=== PATIENT | female | born 1955 | race Caucasian/White ===

== ENCOUNTER → 2016-05-16 | Outpatient (CLI) | payer BC ==
[~2016-05-16] MED LIST: ADVIN25050 INH; BUDE1SUS; BUDE1SUS6; CALC-393 PO; CICL160A INH; LEVO50TA6 PO; LEVO75TA5 PO; METO50TA7 PO; MULT-506 PO; MULT1CAP7 PO; OMEG10007 PO; SYN50 PO; singular PO
--- NOTE | 2016-05-16 11:02 | DIAGNOSTIC IMAGING REPORT ---
CT OF THE CHEST WITHOUT IV CONTRAST CLINICAL HISTORY: Solitary pulmonary nodule COMPARISON STUDY: Chest CT dated 03/01/2010, CT DOSE: 205.73 mGy.cm TECHNIQUE: CT of the thorax was performed from the thoracic inlet to the lung bases. Images are reviewed in the axial, sagittal, and coronal planes. IV contrast was not administered for this examination. FINDINGS: Thyroid: Imaged portions of the thyroid gland are normal in appearance. Thoracic aorta: The thoracic aorta is normal in course and caliber, noting standard 3 vessel arch anatomy. Heart: The heart is normal in size and configuration, without pericardial effusion. Lungs and pleural spaces: Within the right lung, there is relatively stable pleural and fissural nodularity including a 13 mm calcified nodule abutting the anterior mediastinum immediately steered to the internal mammary vessels. There are bilateral lower lobe branching tubular opacities highly suggestive of mucoid impaction. This pattern is often seen in allergic bronchopulmonary aspergillosis. In addition, the patient has multiple bilateral pure groundglass pulmonary nodules (approximately 10 in number). The largest measures approximately 1 cm. In retrospect, many of these were present on the prior study, however they appear slightly larger. The findings are suspicious for multifocal low-grade bronchogenic carcinoma. Mediastinum: There is no pathologic mediastinal lymphadenopathy by size criteria Shaina: There is no pathologic hilar adenopathy given the limitations of a noncontrast study Axilla: Clear. Upper abdomen: Partially visualized upper abdominal viscera is within normal limits. Skeletal structures: There are no lytic or blastic osseous lesions. IMPRESSION: 1. Multiple bilateral pure groundglass pulmonary nodules, viewed as suspicious for multifocal low-grade bronchogenic carcinoma 2. Bilateral lower lobe branching tubular opacities, suggestive of mucoid impaction. This pattern is often seen in allergic bronchopulmonary aspergillosis. 3. Relatively stable pleural and fissural nodularity within the right hemithorax 4. No evidence of pathologic adenopathy on this noncontrast study Electronically signed by: Jass Araujo M.D. 05/16/2016 11:01 AM Dictated Date/Time: 05/16/2016 10:45 AM
== END | disposition home or self-care (01) ==
LOC: C.CTS 10:23
PROVIDERS: ATTEND Internal Medicine Pulmonary Disease
DX: R91.1 Solitary pulmonary nodule (principal)

== ENCOUNTER 2016-05-31 07:32 | Day surgery (SDC) | payer BC ==
--- NOTE | 2016-05-30 13:49 | HISTORY & PHYSICAL EXAMINATION ---
DATE OF ADMISSION: 05/31/2016 HISTORY OF PRESENT ILLNESS: A 60-year-old female followed in the outpatient office for an abnormal CAT scan. Relevant past medical history does include history of tension pneumothorax/spontaneous in 2001 (status post chest tube and pleurodesis - right), hypothyroid, laryngeal reflux disease, and history of light tobacco use: 0.25-1 pack per day for 30 years (quit in 2001 following pneumothorax). In January 2002 the patient was hospitalized for right-sided spontaneous pneumothorax. She was initially treated with a chest tube and underwent bronchoscopy at that time. Pneumothorax recurred and ultimately she required a talc pleurodesis January 2002. She was followed by Dr. Quezada for symptoms of chest congestion and cough beginning in the mid . At this time, she was diagnosed with mild asthma. CT of the chest completed 2009 noted enlarged mediastinal lymph nodes and pulmonary nodules (as below). Care was subsequently transferred to Dr. Davis for continuation of treatment for asthma, nasal polyposis, and history of pneumothorax. She was tapered from Advair to Alvesco with excellent control of her respiratory symptoms. On exam/interview in the office on 05/21/[address] of the chest completed 05/16/2016. The images and the report for this study were reviewed. Previous nodular changes were stable; however, the radiologist noted bilateral pure ground-glass changes as well as bilateral mucoid material affecting the lower lobes primarily. The interpretation noted suspected Aspergillus versus low grade bronchogenic carcinoma per radiologist's report. Results of the CT were reviewed with the patient in the office. Clinically, she was doing very well without any symptoms of increased cough, dyspnea, or wheeze. She denied any symptoms of hemoptysis or changes in weight. She did have a recent renal biopsy which she stated was positive for "several types of cancer." CT February 2010: Multiple scattered hyperdense pleural nodules in the right hemithorax -- unchanged. CT July 2009: Interval improvement in tracheal nodularity. PAST MEDICAL HISTORY: 1. Pneumothorax - spontaneous 2001. 2. Hypothyroid. 3. Esophageal reflux disease. 4. Deviated nasal septum. 5. Arthritis. 6. Chronic rhinitis. 7. Nasal polyposis. 8. Hyperlipidemia. 9. Asthma. 10. Meningioma. 11. Renal cancer. 12. Pulmonary nodule. PAST SURGICAL HISTORY: 1. Colonoscopy. 2. Nasal endoscopy and polypectomy. 3. Resection of pilonidal cyst. 4. Thoracoscopy with talc pleurodesis. 5. History of tubal ligation. FAMILY HISTORY: 1. Coronary artery disease. 2. Hyperlipidemia. 3. Hypertension. 4. Sleep apnea. 5. Alzheimer's. 6. Coronary artery disease. 7. Diabetes mellitus. 8. Parkinson. 9. Hodgkin's disease. SOCIAL HISTORY: 1. The patient is a social drinker. 2. The patient is a former smoker. 3. The patient is . MEDICATIONS: 1. Montelukast sodium 10 mg oral tablet: Take 1 tablet at bedtime. 2. Levothyroxine sodium 50 mcg oral tablet: Take 1 tablet every other day alternating with 75 mcg oral tablet. 3. Levothyroxine sodium 75 mcg oral tablet: Take 1 tablet every other day alternating with 50 mcg oral tablet. 4. Alvesco 160 mcg/ACT inhalation aerosol solution: Inhale 1 puff twice daily. 5. Metoprolol succinate ER 50 mg oral tablet extended release: Take 1 tablet daily. 6. Budesonide 0.5 mg 2 mL inhalation suspension: Take twice daily as needed. 7. Citrucel plus D tablet: Take 2 tablets twice daily. 8. Multivitamin: Take 1 tablet daily. 9. [place] 3-6-9 Complex capsule: Take 1 capsule daily. ALLERGIES: 1. BENADRYL. 2. CODEINE. 3. SULFA. PHYSICAL EXAMINATION: VITAL SIGNS: Height 4 feet 11 inches. Weight 115 pounds, temperature 98.5 degrees Fahrenheit, heart rate 73 beats per minute, respiratory rate 18 respirations per minute, oxygen saturation 98% on room air, blood pressure 106/68 right upper extremity sitting. CONSTITUTIONAL: Well-developed, well-nourished female. No acute distress. HEAD: Positive facial symmetry. EYES: EOMI, PERRLA, no conjunctival injection. MOUTH: No erythema, exudate, or postnasal drip. Mucous membranes are moist. NECK: Trachea is midline without adenopathy or masses. RESPIRATORY: Nonlabored respirations. No wheeze, no rales, or rhonchi. Diminished breath sounds at bases. No clubbing or cyanosis. CARDIOVASCULAR: Regular rate and rhythm, no murmurs, rubs or gallops. EXTREMITIES: +2 radial pulses. Less than 1 second capillary refill. MUSCULOSKELETAL AND EXTREMITIES: Moving and developed symmetrically. No peripheral edema. NEUROLOGIC: Alert and oriented x3. Data recall intact. Appropriate affect. ASSESSMENT AND PLAN: A 60-year-old female presents to the office to follow up history of asthma and CT for pulmonary nodules. 1. Asthma is well controlled. Continue Alvesco and montelukast as previously prescribed. 2. CT with mucous plugging and bilateral solid ground-glass changes - nodules are stable: Proceed with basic fiberoptic bronchoscopy for cultures and visualization. 3. Preprocedural blood work with Aspergillus antibody. Patient's case reviewed and discussed agree with plan. MTDD
[2016-05-31] VITALS (13 sets, daily range): BP systolic 90–142; BP diastolic 48–94; PULSE 60–84; TEMP 36.8–37; O2SAT 96–100; Ht 149.9 cm; Wt 52.5 kg
[~2016-05-31] VITALS: Ht 149.9 cm; Wt 52.5 kg
[~2016-05-31 07:32] MED LIST changes: -BUDE1SUS; -BUDE1SUS6; -CALC-393 PO; -CICL160A INH; -LEVO50TA6 PO; -LEVO75TA5 PO; -MULT-506 PO; -MULT1CAP7 PO; -OMEG10007 PO; -singular PO
[2016-05-31] MEDS ORDERED: MIDAZOLAM HCL 5 MG/ML 1 ML VIAL IV ONE ×2 (07:33→10:45)
[2016-05-31] MEDS ORDERED: FENTANYL CITRATE 100 MCG 2 ML CARP IV ONE (07:33)
[2016-05-31] MEDS ORDERED: LIDOCAINE HCL 2% LOCAL 50ML VIAL INFIL ONE (07:33)
[2016-05-31] MEDS ORDERED: LEVO75TA5 PO (08:19)
[2016-05-31] MEDS ORDERED: LEVO50TA6 PO (08:19)
[2016-05-31] MEDS ORDERED: CICL160A INH (08:19)
[2016-05-31] MEDS ORDERED: BUDE1SUS6 (08:22)
[2016-05-31] MEDS ORDERED: singular PO (08:22)
[2016-05-31] MEDS ORDERED: BUDE1SUS (08:22)
[2016-05-31] MEDS ORDERED: CALC-393 PO (08:26)
[2016-05-31] MEDS ORDERED: MULT-506 PO (08:26)
[2016-05-31] MEDS ORDERED: OMEG10007 PO (08:26)
[2016-05-31] MEDS ORDERED: MULT1CAP7 PO (08:26)
[2016-05-31] MEDS: D5W AND NSS 1,000 ML IV SCH ×2 (09:40→09:52)
--- NOTE | 2016-05-31 09:43 | History & Physical Bridge Note ---
H&P Re-Evaluation Bridge Note: I have examined the patient, reviewed the History & Physical and in the interval since the performance of the History & Physical I have noted the following changes of clinical significance: No changes noted
--- NOTE | 2016-05-31 09:43 | Procedure Note ---
Pre-Mod Sedation Assessment General Date of Moderate Sedation: May 31, 2016. Vital Signs: Vital Signs Past 12 Hours Date Time Temp Pulse Resp B/P Pulse Ox O2 Delivery O2 Flow Rate FiO2 05/31/16 07:47 37 71 20 90/62 97 Room Air Review Cardiovascular: regular rate, rhythm, no edema, no gallop, no JVD, no murmur, normal peripheral pulses Abdomen: normal bowel sounds, non tender, soft, no organomegaly, no pulsatile mass, normal rectal exam, occult blood negative Lungs: chest non-tender, lungs clear, normal breath sounds, no respiratory distress, no accessory muscle use Airway Class: I Pre-Sedation Airway Assessment Oral Cavity: WNL Able to Visualize Vocal Cords: No Short Thick Neck: No Smoking Status: Former Smoker Mallampati Classification: Class I ASA Classification: Class I Procedure Planning Contraindications-for Mod Sed: None Yes Notes The planned sedation has been discussed with the patient and consent obtained. I have identified the patient, determined the appropriateness of sedation and have assessed the patient immediately prior to the procedure. All medicine(s) and interventions are by my order.
[2016-05-31] MEDS ORDERED: NURSING VERBAL MED ORDER ONE (10:30)
[2016-05-31] MEDS ORDERED: FENTANYL CITRATE INJ 50 MCG/1 ML 2 ML VIAL IV ONE (10:45)
--- NOTE | 2016-05-31 11:20 | Discharge Instructions ---
Discharge Instructions Date of Service May 31, 2016. Admission Reason for Admission: Pulmonary Nodule Discharge Discharge Diagnosis / Problem: groundglass nodules Discharge Goals Goal(s): Diagnostic testing Activity Recommendations Activity Limitations: resume your previous activity . Instructions / Follow-Up Instructions / Follow-Up Follow-up in the [place] [facility] Current Hospital Diet Patient's current hospital diet: Discharge Diet Recommended Diet: Regular Diet Procedures Procedures Performed: Bronchoscopy, bronchial alveolar lavage, conscious sedation Pending Studies Studies pending at discharge: yes (microbiologic analysis) List of pending studies: Bronchial washing microbiology for atypical organisms Medical Emergencies . Who to Call and When: Medical Emergencies: If at any time you feel your situation is an emergency, please call 911 immediately. . Non-Emergent Contact Non-Emergency issues call your: Programmer Operator Numerical Control Call Non-Emergent contact if: temperature is above 101.5 . . "Provider Documentation" section prepared by Hector Stanley. VTE Core Measure Inpt VTE Proph given/why not?: Treatment not indicated
--- NOTE | 2016-05-31 11:21 | Procedure Note ---
Post-Moderate Sedation Plan General Date of Moderate Sedation May 31, 2016. Vital Signs: Vital Signs Past 12 Hours Date Time Temp Pulse Resp B/P Pulse Ox O2 Delivery O2 Flow Rate FiO2 05/31/16 11:05 37 65 20 97/56 97 Nasal Cannula 1 05/31/16 10:55 36.9 66 20 98/58 99 Nasal Cannula 2 05/31/16 10:35 36.9 77 20 106/66 99 Nasal Cannula 3 05/31/16 10:30 77 16 126/70 98 Mask 4.0 05/31/16 10:25 84 14 142/75 98 Mask 4.0 05/31/16 10:20 76 17 118/74 100 Mask 4.0 05/31/16 10:15 72 20 129/79 100 Mask 4.0 05/31/16 10:10 68 18 126/94 100 Mask 4.0 05/31/16 09:55 68 18 128/63 100 Room Air 05/31/16 07:47 37 71 20 90/62 97 Room Air Review - Discharge Plan Post Moderate Sedation Plan: On clinical assessment, the patient appears to have tolerated the conscious sedation without complications. Patient is recovering as anticipated. Patient will continue to be monitored by nursing and may be discharged when conscious sedation discharge criteria are met.
--- NOTE | 2016-05-31 11:26 | Bronchoscopy Procedure Note ---
Bronchoscopy Procedure Note Procedure: Bronchoscopy, Bronchial alveolar lavage, conscious sedation Consent: Obtained to the patient placed into the chart Preprocedural diagnosis: Groundglass nodules/atypical infection/cancer Post-procedure well diagnosis: Groundglass nodules/atypical infection/cancer Analgesia: 4% gel lidocaine: Via right naris 2% liquid lidocaine: Via bronchoscopy Sedation: Versed IV: 3 mg Fentanyl IV: 50 g Mechanical procedure: The Olympus video bronchoscope was used for this procedure passed down through the patient's right naris: Naris/posterior naris/posterior oropharynx/glottis: Anatomically within normal limits Vocal cords: Proper abduction and abduction and anatomically within normal limits Subglottis/trachea/Adeola: Minimal mucous secretions appreciated in the trachea otherwise anatomically within normal limits Right bronchial tree: Right mainstem: Anatomically within normal limits Right upper lobe: Anatomically within normal limits Bronchus intermedius: Scant mucus, anatomically within normal limits Right middle lobe: Scant mucus, anatomically within normal limits Right lower lobe: Scant mucus, anatomically within normal limits Left bronchial tree: Left mainstem: Scant mucus, anatomically within normal limits Left upper lobe: Mucous plugs, anatomically within normal limits Lingula: Mucous plugs, anatomically within normal limits Left lower lobe: Mucous plugs, anatomically within normal limits Bronchial lavage: Lavage performed of the left lower lobe anterior lateral subsegment, 60 cc introduced with 30 cc were returned Complications: None Follow-up: Follow-up in the [place] [facility] within the next 7-10 days.
[2016-06-26 15:38] LABS: HERPES SIMPLEX CULT SOURCE RESPIRATORY-LLL BAL; HERPES SIMPLEX VIRUS CULT NOT ISOLATED (NOT ISOLATED)
== END 2016-05-31 12:51 | disposition home or self-care (01) ==
LOC: C.ACU 07:32
PROVIDERS: ATTEND Physician Assistant
DX: R91.1 Solitary pulmonary nodule (principal); E03.9 Hypothyroidism, unspecified; K21.9 Gastro-esophageal reflux disease without esophagitis; E78.5 Hyperlipidemia, unspecified; J45.909 Unspecified asthma, uncomplicated; Z85.528 Personal history of other malignant neoplasm of kidney; Z82.49 Family history of ischemic heart disease and other diseases of the circulatory system; Z83.3 Family history of diabetes mellitus; Z87.891 Personal history of nicotine dependence

== ENCOUNTER → 2016-08-08 | Outpatient (CLI) | payer BC ==
[~2016-08-08] MED LIST changes: -ADVIN25050 INH; +BUDE1SUS; +BUDE1SUS6; +CALC-393 PO; +CICL160A INH; +LEVO50TA6 PO; +LEVO75TA5 PO; +MULT-506 PO; +MULT1CAP7 PO; +OMEG10007 PO; -SYN50 PO; +singular PO
--- NOTE | 2016-08-08 14:06 | MAMMOGRAPHY REPORT ---
BILATERAL DIGITAL SCREENING MAMMOGRAM TOMOSYNTHESIS WITH CAD: 08/08/2016 CLINICAL HISTORY: Routine screening. Patient has no complaints. TECHNIQUE: Breast tomosynthesis in addition to standard 2D mammography was performed. Current study was also evaluated with a Computer Aided Detection (CAD) system. COMPARISON: Comparison is made to exams dated: 08/08/2015 mammogram, 08/02/2014 mammogram, 07/28/2013 mammogram, 07/27/2012 mammogram, 07/25/2011 mammogram, and 07/12/2010 mammogram - [facility] [place]. BREAST COMPOSITION: The tissue of both breasts is extremely dense, which lowers the sensitivity of mammography. FINDINGS: No suspicious masses, calcifications, or areas of architectural distortion are noted in e ither breast. There has been no significant interval change compared to prior exams. IMPRESSION: ACR BI-RADS CATEGORY 1: NEGATIVE There is no mammographic evidence of malignancy. A 1 year screening mammogram is recommended. The p atient will receive written notification of the results. Approximately 10% of breast cancers are not detected with mammography. A negative mammographic repor t should not delay biopsy if a clinically suggestive mass is present. Estefania Eaton M.D. ah/:08/08/2016 08:39:10 Pin Ticket Machine Operator: Dayna ANDERSON(Bird)(M), [facility] [place] letter sent: Normal 1/2 BI-RADS Code: ACR BI-RADS Category 1: Negative
== END | disposition home or self-care (01) ==
LOC: C.MAMM 08:02
PROVIDERS: ATTEND Internal Medicine
DX: Z12.31 Encounter for screening mammogram for malignant neoplasm of breast (principal); M85.89 Other specified disorders of bone density and structure, multiple sites